=== PATIENT | female | born 1930 | race Caucasian/White ===

== ENCOUNTER 2018-05-30 12:22 | Inpatient (IN) | payer MEDICARE, OTHER ==
[2018-05-30] MEDS: IPRATROPIUM (NEB) 0.5 MG/2.5 ML AMP NEB (12:31)
[2018-05-30] MEDS: ALBUTEROL 0.083% (NEB) 2.5 MG/3 ML AMP NEB (12:31)
[2018-05-30] MEDS: SODIUM CHLORIDE 0.9% 1L BAG IV* (12:41)
[2018-05-30] MEDS: CEFTRIAXONE 1 GM/50 ML (PMX) 50 ML IVPB (12:42)
[2018-05-30 12:47] LABS: ADD MAN DIFF? NO; BASOPHILS % 0.2 % (0.0-2.0); EOSINOPHILS # 0.4 10^3/ul (0.0-0.5); EOSINOPHILS % 3.7 % (0.0-7.0); HEMATOCRIT 40.9 % (37.0-47.0); HEMOGLOBIN 13.2 g/dl (12.0-16.0); LYMPHOCYTES # 2.2 10^3/ul (0.8-2.9); LYMPHOCYTES % 23.4 % (15.0-51.0); MEAN CORPUSCULAR HEMOGLOBIN 31.3 pg (29.0-33.0); MEAN CORPUSCULAR HGB CONC 32.3 g/dl (32.0-37.0); MEAN CORPUSCULAR VOLUME 96.9 fl (82.0-101.0); MEAN PLATELET VOLUME 11.6 fl (7.4-10.4); MONOCYTES % 10.2 % (0.0-11.0); NEUTROPHIL # 5.9 10^3/ul (1.6-7.5); NEUTROPHILS % 62.3 % (39.0-77.0); PLATELET COUNT 283 10^3/UL (140-415); RED BLOOD COUNT 4.22 10^6/ul (4.20-5.40); RED CELL DISTRIBUTION WIDTH 13.4 % (11.5-14.5)
[2018-05-30 12:47] LABS: WHITE BLOOD COUNT 9.4 10^3/ul (4.8-10.8)
[2018-05-30 13:06] LABS: ALANINE AMINOTRANSFERASE 21 IU/L (13-69); ALBUMIN 4.2 g/dl (3.3-4.9); ALBUMIN/GLOBULIN RATIO 1.23; ALKALINE PHOSPHATASE 62 IU/L (42-121); ANION GAP 12 (5-13); ASPARTATE AMINO TRANSFERASE 29 IU/L (15-46); BILIRUBIN,INDIRECT 0.3 mg/dl (0-1.1); BILIRUBIN,TOTAL 0.3 mg/dl (0.2-1.3); BLOOD UREA NITROGEN 14 mg/dl (7-20); CALCIUM 10.2 mg/dl (8.4-10.2); CARBON DIOXIDE 31 mmol/L (21-31); CHLORIDE 98 mmol/L (97-110); CREATININE 0.57 mg/dl (0.44-1.00); GLUCOSE 117 mg/dl (70-220); POTASSIUM 4.3 mmol/L (3.5-5.1); SODIUM 141 mmol/L (135-144); TOTAL PROTEIN 7.6 g/dl (6.1-8.1)
[2018-05-30 13:17] LABS: TROPONIN-I < 0.012 ng/ml (0.000-0.120)
[2018-05-30] MEDS: AZITHROMYCIN 500MG/NS (PMX) 250 ML IV (13:32)
[2018-05-30] MEDS ORDERED: ONDANSETRON 4 MG INJ IV (14:00)
[2018-05-30] MEDS ORDERED: DOCUSATE SODIUM 100 MG CAP PO (14:00)
[2018-05-30] MEDS ORDERED: ACETAMINOPHEN 325 MG TAB PO ×2 (14:00)
[2018-05-30] MEDS ORDERED: MECLIZINE 25 MG TAB PO (14:00)
[2018-05-30] MEDS ORDERED: NACL 0.9% 3 ML SYG IV (14:00)
[2018-05-30] MEDS ORDERED: traMADol 50 MG TAB PO (14:00)
[2018-05-30] MEDS ORDERED: MAGNESIUM HYDROXIDE 30ML CUP PO (14:00)
[2018-05-30] MEDS: METHYLPREDNISOLONE 40 MG INJ IV ×2 (14:03→20:47)
[2018-05-30 14:12] LABS: INR 0.94; PROTIME 12.7 Sec (11.9-14.9)
[2018-05-30 14:13] LABS: PARTIAL THROMBOPLASTIN TIME 27.9 Sec (23.0-35.0)
[2018-05-30 17:06] LABS: LACTIC ACID 1.4 mmol/L (0.5-2.0)
[2018-05-30] MEDS: GUAIFENESIN/DM 5ML CUP PO (20:47)
[2018-05-30] MEDS: LORAZEPAM 1 MG TAB PO (20:47)
[2018-05-30] MEDS: ALBUTEROL/IPRATROPIUM (NEB) 3 ML AMP HHN ×2 (20:51→20:53)
[2018-05-31] MEDS: GUAIFENESIN/DM 5ML CUP PO ×3 (06:36→19:10)
[2018-05-31 06:39] LABS: ADD MAN DIFF? NO
[2018-05-31 06:45] LABS: BASOPHILS % 0.1 % (0.0-2.0); HEMATOCRIT 39.1 % (37.0-47.0); HEMOGLOBIN 12.6 g/dl (12.0-16.0); LYMPHOCYTES # 1.5 10^3/ul (0.8-2.9); LYMPHOCYTES % 13.3 % (15.0-51.0); MEAN CORPUSCULAR HEMOGLOBIN 31.1 pg (29.0-33.0); MEAN CORPUSCULAR HGB CONC 32.2 g/dl (32.0-37.0); MEAN CORPUSCULAR VOLUME 96.5 fl (82.0-101.0); MEAN PLATELET VOLUME 12.2 fl (7.4-10.4); MONOCYTE # 0.1 10^3/ul (0.3-0.9); NEUTROPHIL # 9.5 10^3/ul (1.6-7.5); PLATELET COUNT 279 10^3/UL (140-415); RED BLOOD COUNT 4.05 10^6/ul (4.20-5.40); RED CELL DISTRIBUTION WIDTH 13.2 % (11.5-14.5)
[2018-05-31 06:45] LABS: WHITE BLOOD COUNT 11.2 10^3/ul (4.8-10.8)
[2018-05-31 07:14] LABS: ANION GAP 12 (5-13); BLOOD UREA NITROGEN 19 mg/dl (7-20); CALCIUM 9.8 mg/dl (8.4-10.2); CARBON DIOXIDE 28 mmol/L (21-31); CHLORIDE 104 mmol/L (97-110); CREATININE 0.54 mg/dl (0.44-1.00); GLUCOSE 160 mg/dl (70-220); MAGNESIUM 1.8 mg/dl (1.7-2.5); POTASSIUM 4.4 mmol/L (3.5-5.1); SODIUM 144 mmol/L (135-144)
[2018-05-31] MEDS: METHYLPREDNISOLONE 40 MG INJ IV ×2 (08:50→21:10)
[2018-05-31] MEDS: ASPIRIN (EC) 81 MG TAB PO (08:50)
[2018-05-31] MEDS: FAMOTIDINE 20 MG TAB PO (08:51)
[2018-05-31] MEDS: ENOXAPARIN 30 MG/0.3 ML SYG SC (08:52)
[2018-05-31 09:11] LABS: ADD UMIC YES; UR ASCORBIC ACID 40 mg/dL (NEGATIVE); UR BILIRUBIN (Dip) NEGATIVE (NEGATIVE); UR BLOOD (Dip) NEGATIVE (NEGATIVE); UR CLARITY SLIGHTLY CLOUDY (CLEAR); UR COLOR YELLOW (YELLOW); UR GLUCOSE (Dip) NEGATIVE (NEGATIVE); UR KETONES (Dip) NEGATIVE (NEGATIVE); UR LEUKOCYTE ESTERASE (Dip) 3+ Leu/ul (NEGATIVE); UR MUCUS FEW /HPF (NONE SEEN); UR NITRITE (Dip) NEGATIVE (NEGATIVE); UR RBC 19 /HPF (0-5); UR SPECIFIC GRAVITY (Dip) 1.015 (1.003-1.030); UR SQUAMOUS EPITHELIAL CELL FEW /HPF (FEW); UR TOTAL PROTEIN (Dip) NEGATIVE (NEGATIVE); UR UROBILINOGEN (Dip) NEGATIVE (NEGATIVE); UR WBC 5 /HPF (0-5)
[2018-05-31] MEDS: ALBUTEROL/IPRATROPIUM (NEB) 3 ML AMP HHN ×3 (09:46→22:46)
[2018-05-31] MEDS: DONEPEZIL 5 MG TAB PO (11:15)
[2018-05-31] MEDS: CEFTRIAXONE 1 GM/50 ML (PMX) 50 ML IVPB (13:51)
[2018-05-31] MEDS: AZITHROMYCIN 500MG/NS (PMX) 250 ML IV (16:25)
[2018-05-31] MEDS: LORAZEPAM 1 MG TAB PO (21:10)
[2018-06-01] MEDS: GUAIFENESIN/DM 5ML CUP PO ×2 (03:40→19:18)
[2018-06-01] MEDS: ASPIRIN (EC) 81 MG TAB PO (09:33)
[2018-06-01] MEDS: DONEPEZIL 5 MG TAB PO (09:33)
[2018-06-01] MEDS: ENOXAPARIN 30 MG/0.3 ML SYG SC (09:33)
[2018-06-01] MEDS: METHYLPREDNISOLONE 40 MG INJ IV (09:33)
[2018-06-01] MEDS: FAMOTIDINE 20 MG TAB PO (09:34)
[2018-06-01] MEDS: MOMETASONE 0.24 GM INHALER INH ×2 (10:18→20:51)
[2018-06-01] MEDS: BENZONATATE 100 MG CAP PO (10:21)
[2018-06-01] MEDS: AZITHROMYCIN 500MG/NS (PMX) 250 ML IV (13:17)
[2018-06-01] MEDS: METHYLPREDNISOLONE 125 MG INJ IV (13:17)
[2018-06-01] MEDS: CEFTRIAXONE 1 GM/50 ML (PMX) 50 ML IVPB (14:54)
[2018-06-01] MEDS: ALBUTEROL/IPRATROPIUM (NEB) 3 ML AMP HHN ×2 (15:01→19:27)
[2018-06-01] MEDS: LORAZEPAM 1 MG TAB PO (20:51)
[2018-06-02] MEDS: GUAIFENESIN/DM 5ML CUP PO ×4 (01:33→18:46)
[2018-06-02 05:18] LABS: ADD MAN DIFF? NO
[2018-06-02 05:23] LABS: BASOPHILS % 0.1 % (0.0-2.0); HEMATOCRIT 36.9 % (37.0-47.0); HEMOGLOBIN 11.8 g/dl (12.0-16.0); LYMPHOCYTES # 1.5 10^3/ul (0.8-2.9); LYMPHOCYTES % 10.3 % (15.0-51.0); MEAN CORPUSCULAR HEMOGLOBIN 31.1 pg (29.0-33.0); MEAN CORPUSCULAR VOLUME 97.1 fl (82.0-101.0); MEAN PLATELET VOLUME 11.7 fl (7.4-10.4); MONOCYTE # 0.8 10^3/ul (0.3-0.9); MONOCYTES % 5.5 % (0.0-11.0); NEUTROPHILS % 83.1 % (39.0-77.0); PLATELET COUNT 273 10^3/UL (140-415); RED CELL DISTRIBUTION WIDTH 13.7 % (11.5-14.5)
[2018-06-02 05:23] LABS: WHITE BLOOD COUNT 14.4 10^3/ul (4.8-10.8)
[2018-06-02 05:47] LABS: ALANINE AMINOTRANSFERASE 23 IU/L (13-69); ALBUMIN 3.7 g/dl (3.3-4.9); ALBUMIN/GLOBULIN RATIO 1.27; ALKALINE PHOSPHATASE 52 IU/L (42-121); ANION GAP 14 (5-13); ASPARTATE AMINO TRANSFERASE 25 IU/L (15-46); BILIRUBIN,INDIRECT 0.1 mg/dl (0-1.1); BILIRUBIN,TOTAL 0.1 mg/dl (0.2-1.3); BLOOD UREA NITROGEN 20 mg/dl (7-20); CALCIUM 9.4 mg/dl (8.4-10.2); CARBON DIOXIDE 30 mmol/L (21-31); CHLORIDE 102 mmol/L (97-110); CREATININE 0.57 mg/dl (0.44-1.00); GLUCOSE 130 mg/dl (70-220); POTASSIUM 3.6 mmol/L (3.5-5.1); SODIUM 146 mmol/L (135-144); TOTAL PROTEIN 6.6 g/dl (6.1-8.1)
[2018-06-02] MEDS: ASPIRIN (EC) 81 MG TAB PO (09:37)
[2018-06-02] MEDS: DONEPEZIL 5 MG TAB PO (09:37)
[2018-06-02] MEDS: FAMOTIDINE 20 MG TAB PO (09:37)
[2018-06-02] MEDS: AZITHROMYCIN 250 MG TAB PO (09:38)
[2018-06-02] MEDS: MOMETASONE 0.24 GM INHALER INH ×2 (09:38→21:45)
[2018-06-02] MEDS: METHYLPREDNISOLONE 125 MG INJ IV ×2 (09:38→21:43)
[2018-06-02] MEDS: ENOXAPARIN 30 MG/0.3 ML SYG SC (09:42)
[2018-06-02] MEDS: BENZONATATE 100 MG CAP PO ×2 (09:55→21:43)
[2018-06-02] MEDS: CEFTRIAXONE 1 GM/50 ML (PMX) 50 ML IVPB (13:23)
[2018-06-02] MEDS: AMLODIPINE 2.5 MG TAB PO (16:30)
[2018-06-02] MEDS: AMLODIPINE 5 MG TAB PO (18:03)
[2018-06-02] MEDS: ALBUTEROL/IPRATROPIUM (NEB) 3 ML AMP HHN (19:13)
[2018-06-02] MEDS: LORAZEPAM 1 MG TAB PO (21:43)
[2018-06-02] MEDS: MONTELUKAST 10 MG TAB PO (21:43)
[2018-06-03] MEDS: GUAIFENESIN/DM 5ML CUP PO ×3 (02:14→23:22)
[2018-06-03] MEDS: ALBUTEROL/IPRATROPIUM (NEB) 3 ML AMP HHN ×4 (02:18→19:22)
[2018-06-03 05:42] LABS: ADD MAN DIFF? NO
[2018-06-03 05:54] LABS: WHITE BLOOD COUNT 14.2 10^3/ul (4.8-10.8)
[2018-06-03 05:54] LABS: BASOPHILS % 0.2 % (0.0-2.0); HEMATOCRIT 41.1 % (37.0-47.0); LYMPHOCYTES # 1.1 10^3/ul (0.8-2.9); MEAN CORPUSCULAR HEMOGLOBIN 30.5 pg (29.0-33.0); MEAN CORPUSCULAR HGB CONC 31.6 g/dl (32.0-37.0); MEAN CORPUSCULAR VOLUME 96.5 fl (82.0-101.0); MEAN PLATELET VOLUME 11.7 fl (7.4-10.4); MONOCYTE # 0.4 10^3/ul (0.3-0.9); MONOCYTES % 2.6 % (0.0-11.0); NEUTROPHIL # 12.3 10^3/ul (1.6-7.5); NEUTROPHILS % 86.5 % (39.0-77.0); PLATELET COUNT 333 10^3/UL (140-415); RED BLOOD COUNT 4.26 10^6/ul (4.20-5.40); RED CELL DISTRIBUTION WIDTH 13.6 % (11.5-14.5)
[2018-06-03 06:04] LABS: MAGNESIUM 1.9 mg/dl (1.7-2.5)
[2018-06-03 06:04] LABS: PHOSPHORUS 4.2 mg/dl (2.5-4.9)
[2018-06-03 06:10] LABS: ANION GAP 16 (5-13); BLOOD UREA NITROGEN 23 mg/dl (7-20); CALCIUM 9.7 mg/dl (8.4-10.2); CARBON DIOXIDE 27 mmol/L (21-31); CHLORIDE 101 mmol/L (97-110); CREATININE 0.56 mg/dl (0.44-1.00); GLUCOSE 168 mg/dl (70-220); POTASSIUM 3.5 mmol/L (3.5-5.1); SODIUM 144 mmol/L (135-144)
[2018-06-03 06:13] LABS: B-TYPE NATRIURETIC PEPTIDE 1310 PG/ML (0-450)
[2018-06-03] MEDS: METHYLPREDNISOLONE 125 MG INJ IV ×3 (06:41→21:50)
[2018-06-03] MEDS: AZITHROMYCIN 250 MG TAB PO (08:23)
[2018-06-03] MEDS: BENZONATATE 100 MG CAP PO ×2 (08:23→21:50)
[2018-06-03] MEDS: ASPIRIN (EC) 81 MG TAB PO (08:23)
[2018-06-03] MEDS: DONEPEZIL 5 MG TAB PO (08:23)
[2018-06-03] MEDS: FAMOTIDINE 20 MG TAB PO (08:23)
[2018-06-03] MEDS: MOMETASONE 0.24 GM INHALER INH ×2 (08:24→21:50)
[2018-06-03] MEDS: ENOXAPARIN 30 MG/0.3 ML SYG SC (08:30)
[2018-06-03] MEDS: CEFTRIAXONE 1 GM/50 ML (PMX) 50 ML IVPB (13:26)
[2018-06-03] MEDS: AMLODIPINE 2.5 MG TAB PO (13:26)
[2018-06-03] MEDS ORDERED: ALBUTEROL/IPRATROPIUM (NEB) 3 ML AMP HHN (16:00)
[2018-06-03] MEDS: MAGNESIUM SULFATE 2 GM/50 ML 50 ML IVPB (18:33)
[2018-06-03] MEDS: SOD CHLORIDE 0.9% 1,000 ML IV (18:33)
[2018-06-03] MEDS: LORAZEPAM 1 MG TAB PO (21:50)
[2018-06-03] MEDS: MONTELUKAST 10 MG TAB PO (21:50)
[2018-06-03] MEDS: ATORVASTATIN 10 MG TAB PO (21:50)
[2018-06-04] MEDS: ALBUTEROL/IPRATROPIUM (NEB) 3 ML AMP HHN ×5 (00:46→19:44)
[2018-06-04] MEDS: SOD CHLORIDE 0.9% 1,000 ML IV (05:20)
[2018-06-04] MEDS: METHYLPREDNISOLONE 125 MG INJ IV ×2 (05:41→20:03)
[2018-06-04] MEDS: GUAIFENESIN/DM 5ML CUP PO ×3 (05:41→18:46)
[2018-06-04 05:52] LABS: ADD MAN DIFF? NO
[2018-06-04 05:54] LABS: WHITE BLOOD COUNT 13.7 10^3/ul (4.8-10.8)
[2018-06-04 05:54] LABS: BASOPHILS % 0.2 % (0.0-2.0); HEMATOCRIT 39.9 % (37.0-47.0); LYMPHOCYTES # 1.1 10^3/ul (0.8-2.9); LYMPHOCYTES % 7.7 % (15.0-51.0); MEAN CORPUSCULAR HGB CONC 32.6 g/dl (32.0-37.0); MEAN CORPUSCULAR VOLUME 95.2 fl (82.0-101.0); MEAN PLATELET VOLUME 11.4 fl (7.4-10.4); MONOCYTE # 0.5 10^3/ul (0.3-0.9); MONOCYTES % 3.5 % (0.0-11.0); NEUTROPHIL # 11.5 10^3/ul (1.6-7.5); NEUTROPHILS % 84.6 % (39.0-77.0); PLATELET COUNT 300 10^3/UL (140-415); RED BLOOD COUNT 4.19 10^6/ul (4.20-5.40); RED CELL DISTRIBUTION WIDTH 13.5 % (11.5-14.5)
[2018-06-04] MEDS ORDERED: morphine 4 MG/ML VIAL IV (06:00)
[2018-06-04] MEDS ORDERED: DIPHENHYDRAMINE 50 MG INJ IV (06:00)
[2018-06-04 06:19] LABS: HEMOGLOBIN A1C 5.9 % (0-5.9)
[2018-06-04 06:28] LABS: PHOSPHORUS 3.5 mg/dl (2.5-4.9)
[2018-06-04 06:28] LABS: LIPASE 22 U/L (23-300)
[2018-06-04 06:30] LABS: ALANINE AMINOTRANSFERASE 43 IU/L (13-69); ALBUMIN 3.5 g/dl (3.3-4.9); ALBUMIN/GLOBULIN RATIO 1.29; ALKALINE PHOSPHATASE 55 IU/L (42-121); ANION GAP 15 (5-13); ASPARTATE AMINO TRANSFERASE 26 IU/L (15-46); BILIRUBIN,INDIRECT 0.2 mg/dl (0-1.1); BILIRUBIN,TOTAL 0.2 mg/dl (0.2-1.3); BLOOD UREA NITROGEN 19 mg/dl (7-20); CALCIUM 9.2 mg/dl (8.4-10.2); CARBON DIOXIDE 30 mmol/L (21-31); CHLORIDE 98 mmol/L (97-110); CREATININE 0.55 mg/dl (0.44-1.00); GLUCOSE 153 mg/dl (70-220); MAGNESIUM 2.4 mg/dl (1.7-2.5); POTASSIUM 3.4 mmol/L (3.5-5.1); SODIUM 143 mmol/L (135-144); TOTAL PROTEIN 6.2 g/dl (6.1-8.1)
[2018-06-04 06:32] LABS: TROPONIN-I 0.028 ng/ml (0.000-0.120)
[2018-06-04 06:34] LABS: LACTIC ACID 2.7 mmol/L (0.5-2.0)
[2018-06-04 06:51] LABS: THYROID STIMULATING HORMONE 0.294 MIU/L (0.465-4.680)
[2018-06-04] MEDS: AMLODIPINE 2.5 MG TAB PO (08:41)
[2018-06-04] MEDS: FAMOTIDINE 20 MG TAB PO (08:41)
[2018-06-04] MEDS: MOMETASONE 0.24 GM INHALER INH ×2 (08:41→22:18)
[2018-06-04] MEDS: DONEPEZIL 5 MG TAB PO (08:41)
[2018-06-04] MEDS: ASPIRIN (EC) 81 MG TAB PO (08:41)
[2018-06-04] MEDS: AZITHROMYCIN 250 MG TAB PO (08:41)
[2018-06-04] MEDS: traMADol 50 MG TAB PO ×2 (08:44→20:03)
[2018-06-04] MEDS: ENOXAPARIN 40 MG/0.4 ML SYG SC (08:45)
[2018-06-04] MEDS: LOSARTAN 50 MG TAB PO (12:57)
[2018-06-04] MEDS: POTASSIUM CHLORIDE 20 MEQ POWDER FOR ORAL SOLN PO (12:58)
[2018-06-04] MEDS: BENZONATATE 100 MG CAP PO (14:41)
[2018-06-04] MEDS: RACEPINEPHRINE 2.25%(NEB) 0.5 ML AMP HHN (15:04)
[2018-06-04] MEDS: ATORVASTATIN 10 MG TAB PO (20:03)
[2018-06-04] MEDS: LORAZEPAM 1 MG TAB PO (20:03)
[2018-06-04] MEDS: MONTELUKAST 10 MG TAB PO (20:03)
[2018-06-05] MEDS: BENZONATATE 100 MG CAP PO ×3 (05:25→20:39)
[2018-06-05 05:53] LABS: ADD MAN DIFF? NO
[2018-06-05 06:22] LABS: BASOPHILS % 0.2 % (0.0-2.0); HEMATOCRIT 41.7 % (37.0-47.0); HEMOGLOBIN 13.5 g/dl (12.0-16.0); LYMPHOCYTES # 1.3 10^3/ul (0.8-2.9); MEAN CORPUSCULAR HEMOGLOBIN 30.8 pg (29.0-33.0); MEAN CORPUSCULAR HGB CONC 32.4 g/dl (32.0-37.0); MEAN CORPUSCULAR VOLUME 95.2 fl (82.0-101.0); MEAN PLATELET VOLUME 11.4 fl (7.4-10.4); MONOCYTE # 0.6 10^3/ul (0.3-0.9); NEUTROPHIL # 11.7 10^3/ul (1.6-7.5); PLATELET COUNT 340 10^3/UL (140-415); RED BLOOD COUNT 4.38 10^6/ul (4.20-5.40); RED CELL DISTRIBUTION WIDTH 13.6 % (11.5-14.5)
[2018-06-05 06:22] LABS: WHITE BLOOD COUNT 14.1 10^3/ul (4.8-10.8)
[2018-06-05 06:53] LABS: FREE T4 (FREE THYROXINE) 0.84 ng/dl (0.85-1.93)
[2018-06-05 06:59] LABS: ANION GAP 12 (5-13); BLOOD UREA NITROGEN 21 mg/dl (7-20); CALCIUM 9.2 mg/dl (8.4-10.2); CARBON DIOXIDE 32 mmol/L (21-31); CHLORIDE 96 mmol/L (97-110); CREATININE 0.52 mg/dl (0.44-1.00); GLUCOSE 143 mg/dl (70-220); POTASSIUM 3.8 mmol/L (3.5-5.1); SODIUM 140 mmol/L (135-144)
[2018-06-05 07:22] LABS: MAGNESIUM 2.3 mg/dl (1.7-2.5)
[2018-06-05] MEDS: ALBUTEROL/IPRATROPIUM (NEB) 3 ML AMP HHN ×3 (07:38→19:19)
[2018-06-05] MEDS: METHYLPREDNISOLONE 125 MG INJ IV ×2 (08:06→20:38)
[2018-06-05] MEDS: FAMOTIDINE 20 MG TAB PO (08:06)
[2018-06-05] MEDS: ASPIRIN (EC) 81 MG TAB PO (08:06)
[2018-06-05] MEDS: DONEPEZIL 5 MG TAB PO (08:07)
[2018-06-05] MEDS: LOSARTAN 25 MG TAB PO (08:07)
[2018-06-05] MEDS: AMLODIPINE 2.5 MG TAB PO (08:07)
[2018-06-05] MEDS: MOMETASONE 0.24 GM INHALER INH ×2 (08:08→20:38)
[2018-06-05] MEDS: ENOXAPARIN 40 MG/0.4 ML SYG SC (08:14)
[2018-06-05] MEDS: AZITHROMYCIN 250 MG TAB PO ×2 (09:00→11:29)
[2018-06-05] MEDS: GUAIFENESIN/DM 5ML CUP PO (11:18)
[2018-06-05] MEDS: ONDANSETRON 4 MG INJ IV (12:11)
[2018-06-05] MEDS: PANTOPRAZOLE (EC) 40 MG TAB PO ×2 (12:11→18:09)
[2018-06-05] MEDS ORDERED: AZITHROMYCIN 250 MG TAB PO (13:00)
[2018-06-05] MEDS: MONTELUKAST 10 MG TAB PO (20:38)
[2018-06-05] MEDS: LORAZEPAM 1 MG TAB PO (20:38)
[2018-06-05] MEDS: ATORVASTATIN 10 MG TAB PO (20:39)
[2018-06-06] MEDS: PANTOPRAZOLE (EC) 40 MG TAB PO ×2 (05:34→17:56)
[2018-06-06] MEDS: ALBUTEROL/IPRATROPIUM (NEB) 3 ML AMP HHN ×2 (07:55→14:00)
[2018-06-06] MEDS: LOSARTAN 25 MG TAB PO (08:37)
[2018-06-06] MEDS: ONDANSETRON 4 MG INJ IV (08:37)
[2018-06-06] MEDS: AMLODIPINE 2.5 MG TAB PO (08:37)
[2018-06-06] MEDS: DONEPEZIL 5 MG TAB PO (08:37)
[2018-06-06] MEDS: AZITHROMYCIN 250 MG TAB PO (08:37)
[2018-06-06] MEDS: ASPIRIN (EC) 81 MG TAB PO (08:37)
[2018-06-06] MEDS: METHYLPREDNISOLONE 125 MG INJ IV ×2 (08:38→20:19)
[2018-06-06] MEDS: MOMETASONE 0.24 GM INHALER INH (08:38)
[2018-06-06] MEDS: ENOXAPARIN 40 MG/0.4 ML SYG SC (08:53)
[2018-06-06] MEDS: BENZONATATE 100 MG CAP PO ×2 (08:54→17:56)
[2018-06-06] MEDS: BUDESONIDE (NEB) 0.5MG/2ML AMP HHN (09:30)
[2018-06-06] MEDS: GUAIFENESIN/DM 5ML CUP PO (13:04)
[2018-06-06] MEDS: LORAZEPAM 1 MG TAB PO (20:19)
[2018-06-06] MEDS: MONTELUKAST 10 MG TAB PO (20:19)
[2018-06-06] MEDS: ATORVASTATIN 10 MG TAB PO (20:19)
== END 2018-06-06 20:35 | disposition home or self-care (01) | DRG 202 ==
LOC: E/R 12:22 → 2NE 13:34
DX: J45.901 Unspecified asthma with (acute) exacerbation (principal); J96.01 Acute respiratory failure with hypoxia; Z99.81 Dependence on supplemental oxygen; F03.90 Unspecified dementia, unspecified severity, without behavioral disturbance, psychotic disturbance, mood disturbance, and anxiety; J20.9 Acute bronchitis, unspecified; K21.9 Gastro-esophageal reflux disease without esophagitis; R42 Dizziness and giddiness; I10 Essential (primary) hypertension; R26.9 Unspecified abnormalities of gait and mobility; I25.10 Atherosclerotic heart disease of native coronary artery without angina pectoris; Z79.82 Long term (current) use of aspirin; I25.2 Old myocardial infarction; Z98.61 Coronary angioplasty status
CPT/HCPCS: 36415; 71045; 71250; 80048; 80053; 81001; 83036; 83605; 83690; 83735; 83880; 84100; 84439; 84443; 84480; 84484; 85025; 85610; 85730; 87040; 87086; 87400; 93005; 93306; 93970; 94640; 94664; 96365; 96375; 97110; 97116; 97163; 97166; 97530; 99285-25